=== PATIENT | female | born 1985 | race African-American/Black ===

== ENCOUNTER 2021-01-07 19:29 | Emergency (ER) | payer MEDICAID, SELFPAY ==
[2021-01-07 19:40] VITALS: BP 115/69; PULSE 84; RESP 16; TEMP 37; O2SAT 97; BMI 37.8
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
[2021-01-07] MEDS: Diphth,Pertus(ACell),Tet Adult 0.5 ML SYRINGE IM (20:30)
[2021-01-07] MEDS: Lidocaine HCl 2 % MPF 5 ML VIAL 10 ML INFILTRATI (20:30)
--- NOTE | 2021-01-07 20:55 | PC.NURSE ---
This RN assisting primary RN with medications ordered in MAY. This RN medicated pt with TDAP and scanned lido and left at bedside for provider use. Pt aaox4, resting on stretcher in NAD, breathing with ease on RA. Pt skin warm dry and normal in appearance for age and race, speaking in complete, clear sentences.
== END 2021-01-07 20:59 | disposition home or self-care (01) ==
PROVIDERS: Emergency Provider Emergency Medicine
DX: S71.111A Laceration without foreign body, right thigh, initial encounter (principal); M79.651 Pain in right thigh; W26.0XXA Contact with knife, initial encounter; Y93.9 Activity, unspecified; Y92.9 Unspecified place or not applicable; Y99.9 Unspecified external cause status
CPT/HCPCS: 12001; 90471; 90715; 99284

== ENCOUNTER 2021-01-10 17:12 | Emergency (ER) | payer MEDICAID, SELFPAY ==
[2021-01-10 17:39] VITALS: BP 136/74; PULSE 88; RESP 18; TEMP 36.1; O2SAT 97; BMI 41.5
--- NOTE | 2021-01-10 18:52 | ED.URI ---
HPI - URI/Sore Throat General Chief Complaint: Upper Respiratory Symptoms Stated Complaint: dry cough sore throat Time Seen by Provider: 01/10/21 18:43 Source: patient Mode of arrival: ambulatory Limitations: no limitations History of Present Illness HPI Narrative: Patient complaining of 1 week of sore throat, congestion, cough, not vaccinated against COVID no fever no chills no body ache noticed some loss sensation no other family member sick Related Data Previous Rx's Medication Instructions Recorded codeine 10 mg-guaifenesin 100 mg/5 10 ml PO Q4-6H PRN #237 ml 01/10/21 mL oral liquid levofloxacin 500 mg tablet 500 mg PO DAILY 5 Days #5 tab 01/10/21 Allergies Allergy/AdvReac Type Severity Reaction Status Date / Time No Known Allergies Allergy Unverified 11/23/19 17:26 [No Known Allergies*] Review of Systems Review of Systems: Yes all other systems are reviewed and are negative [facility] Social History Social History Alcohol intake: unknown Patient Tobacco Use Status: Tobacco use Unknown Advance Directives: No Advance Directives Information Provided: Yes Patient : No Physical Exam Vital Signs: Vital Signs: Last Vital Signs Temp 97 F 01/10/21 17:39 Pulse 88 01/10/21 17:39 Resp 18 01/10/21 17:39 BP 136/74 01/10/21 17:39 Pulse Ox 97 01/10/21 17:39 Body Mass Index 41.5 Appearance: Alert. Oriented X3. No acute distress. ENT: Pharynx normal. Oral Mucosa moist, tympanic membrane intact Neck: Normal inspection. Neck supple. CVS: Normal heart rate and rhythm. Pulses normal. Respiratory: No respiratory distress. Equal air entry bilateral, no wheezing/rales/rhonchi Abdomen: Soft and nontender. B Skin: Skin warm and dry. Normal skin color. Normal skin turgor. Extremities: No lower extremity edema. No calf tenderness Neuro: Oriented X 3. MDM - URI/Sore Throat Lab Data Attestation: I reviewed the patient's lab results. Labs: Lab Results 01/10/21 01/10/21 Range/Units 18:28 18:28 COVID-19 (DEE) Negative (Negative) COVID-19 Clin Com See Note S. pyogenes GrpA KAMARI Negative (Negative) Discharge Plan Discharge Clinical Impression: Pharyngitis Qualifiers: Pharyngitis/tonsillitis etiology: other specified organisms Qualified Code(s): J02.8 - Acute pharyngitis due to other specified organisms Patient Disposition: Home, Self-Care Instructions: Pharyngitis (ED) Additional Instructions: Take antibiotic as advised Cough syrup was advised Get your COVID-19 vaccine please Prescriptions: New codeine-guaifenesin 10-100 mg/5 mL liquid 10 ml PO Q4-6H PRN (Reason: cough) Qty: 237 RF: 0 levofloxacin 500 mg tablet 500 mg PO DAILY 5 Days Qty: 5 RF: 0 Interventions: ED Discharge Assessment Last Done: 01/10/21 20:01 Discharge Date/Time: 01/10/21 20:02
[2021-01-10 19:07] LABS: IDNOW Serial# 9DD0AD1C; Strep A Nucleic Acid Negative (Negative)
[2021-01-10 19:13] LABS: COVID-19 Test Negative (Negative)
[2021-01-10] MEDS: Benzonatate 100 MG CAPSULE 200 MG PO (19:54)
[2021-01-10] MEDS: levoFLOXacin 500 MG TABLET PO (19:54)
== END 2021-01-10 20:02 | disposition home or self-care (01) ==
PROVIDERS: Emergency Provider Internal Medicine
DX: J02.8 Acute pharyngitis due to other specified organisms (principal); R20.8 Other disturbances of skin sensation; Z20.822 Contact with and (suspected) exposure to COVID-19
CPT/HCPCS: 36415; 87635; 87651; 99283

== ENCOUNTER → 2022-08-14 14:16 | Outpatient (BNVA) | payer MEDICAID, SELFPAY | PROVIDERS: Visit Provider Physician Assistant ==

== ENCOUNTER 2022-10-16 09:48 | Outpatient (AMB) | payer OTHER, SELFPAY ==
--- NOTE | 2022-10-16 09:50 | MHC.OFFVISWM ---
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 She heard about our program from her . Her goal is to lose weight and achieve a healthy lifestyle. She reports first being concerned about her weight 3-4 years ago, highest weight to date was 260 pounds. Current weight is 240.8 pounds with a BMI of 44.1. She has tried multiple methods of weight loss including fad diets without permanent results. She lives with her and step daughter. She does not work. She wakes at:?9 am, and goes to bed at?midnight. Dinner is at 5 pm. Breakfast: eggs, sausage, tater tots AM snack: skip Lunch: skip PM snack: skip Dinner: rice, chicken, salad, plantains After dinner: soup, mac and cheese Other snacks: chips Liquids: 32-48 oz water, 36 oz sprite or coke daily, 8 oz fruit punch or OJ daily Alcohol/marijuana/tobacco intake: 2-3 wine bottles daily, no cannabis, no tobacco Exercise: none, plans to join [employer] GERD score: 0 JUAN MANUEL score: 1 ESS score: 5 QOL score: 101 [facility] Surgical History (Updated 10/16/22 @ 09:58 by Kristina Ivan CMA) No history of previous surgery Social History Alcohol intake: unknown Patient Tobacco Use Status: Tobacco use Unknown Review of Systems Const All systems reviewed & are unremarkable except as noted in HPI and below Physical Exam Const General: cooperative, healthy appearing and no acute distress Orientation/consciousness: patient oriented x3 HEENT Head: Yes normal to inspection Ears: hearing grossly normal bilaterally General nose exam: Normal external nose present Face and sinus: Yes normal facial exam Eyes General: appearance normal, both eyes and all related structures Resp Effort & Inspection: normal respiratory effort Auscultation: clear to auscultation bilaterally Cardio Rate: regular rate Rhythm: regular rhythm Heart sounds: S1 normal heart sound present and S2 normal heart sound present GI Inspection: Yes normal to inspection, No distended and Yes obesity Palpation (GI): Soft to palpation, nontender and no guarding Auscultation: normal bowel sounds Skin General skin exam: no rashes or lesions noted Neuro General: patient oriented x3 Extrem General: No edema Psych Appearance: grossly normal Mental Status: mental status grossly normal Speech and movement: Normal speech and movement present Affect: normal affect Attitude: cooperative Assessment & Plan Assessment & Plan (1) Morbid obesity: Code(s): E66.01 - Morbid (severe) obesity due to excess calories Plan: This is a?36 yo female who will start our SWL program to prepare for bariatric surgery.? Blood work, h pylori , CXR, ECG, Abd US and UGI have been ordered. She is being scheduled for RD and BH initial consultations. She will start SWL classes and watch the first three videos before her next appointment. ? Adequate sleep of 7-8 hours per night discussed, awakening at 9 am and going to bed at midnight ? Purchase body composition analyzer scale (Mirza lebron or Roberto Carlos recommended) and check weight weekly. The best time to do this is first thing in the morning after going to the bathroom. 1. Nutritional counseling: Be sure to careful read the number of scoops per shake Start with 3 Premier Protein shakes ([employer], [employer], [employer]), (1 scoop in 8 oz low fat unsweetened almond milk or water each) First shake at 10am-noon, Second shake at 2pm-4pm Dinner at 5pm (9 forks of protein and 9 forks of salad/vegetables). Meal to include lean meat (beef, fish, pork, turkey, chicken), cooked vegetables or a salad with olive oil and/or fruits (berries, pears, apples, kiwi). Avoid salt, breads, potatoes, rice, pasta, desserts. 1 protein bar (Fulfil bars at [employer], [employer], or [employer]) at 7pm-9pm. Another shake with 1 scoop in 8 oz unsweetened almond milk at 10pm-Midnight. Try to drink 64 oz of water daily and avoid soda and juices. Decrease your wine intake over the next 3-4 weeks and then stop.? You stated you drink 2-3 bottles daily.? Decrease to 2 bottles for 5 days then 1 bottle for 5 days, then 1/2 a bottle for 5 days then 2 glasses daily for 2 days then 1 glass daily for 2 days then 1 glass every other day for 3 days then stop completely.?? ?2. Each shake would be drunk slowly, like coffee in a period of 2 hours. ?3. Cut each bar in 4 pieces and eat each piece in 30 min ?to make each bar last 2 hours. ?4. I emphasized the importance of measuring accurately the food portion and measure it carefully when serving the food on the plate ?5. The meal portions include 9 full-size forks of meat and 9 full-size forks of salad. You always eat the meat portion but you can replace up to half of the forks of salad/vegetables with rice, potatoes or pasta, or a fruit ?if you like. The less you do it the better weight loss will be. ?6. One full-size fork is what can be scooped on the fork without falling aside and not what can be bit with the fork. Use regular forks like those you find in a typical restaurant. ?7.? Please send me weight measurements as soon as possible and then once a week. Always include your diet and exercise plan. Alternatively come weekly at the office for weight checks and send me the measurements. ?8. Exercise counseling: Begin by watching a stretching for beginners video. Start slowly and begin to stretch your muscles. You should do this before and after each exercise session to prevent injury. Please join [facility] gym near your home. Ask the social service manager or one of the trainers how to use the machines if you are unfamiliar with them. Start elliptical with a resistance of 2. Increase resistance by 1 every 3 min to your most comfortable resistance with a max resistance of 8. Reduce the resistance by 1 every 3 minutes back down to 2 and repeat cycles for 300 calories. Alternatively, start treadmill with a speed of 3.0 and incline of 0, increasing incline by 1 every 3 minutes to the highest comfortable level (max 6 for now) then decrease in the same fashion. Repeat process to a goal of 300 calories. Goal of 2000 calories burned or more weekly. You may also consider use of the stationary bike. The easiest would be to chose the fat-burn or interval training program on the machine and do this until you reach the 300 calorie goal. Alternatively, you can manually adjust the resistance in a similar fashion as mentioned above, (resistance of 2-8 with a goal speed of 12 mph). Tracking calories is essential. 9. Alternatively start walking outside daily, tracking calories with a goal of 300 calories per day, daily. You can download the wilma [employer] which can track your time, distance and calories while walking outside. You press start in the wilma when you start and then stop when you are finished. 10.? It is important to avoid for at least 18 months postoperatively and it has been discussed at the information session 11. Please get labs, EKG and chest X-Ray within 1 week. 12. Discussed and answered all questions regarding?obtained consent to participate in the [facility]?Registry. 13. Please follow the diet plan exactly, without any change. If you do not like something about the plan or you feel hungry, you need to communicate with me so I can help you revise the plan. You should not change the plan yourself. Text me at [phone] 14. Goal is to lose at least 12 pounds in the first month 15. Goal is to lose 10% of your weight before surgery, which is about 24 lbs. Ultimate weight goal: 216 lbs before surgery Patient is morbidly obese and is not considered stable at this time.?I spent a total of 70 minutes reviewing/updating records, examining the patient and counseling the patient on weight management as detailed above. Orders: Orders Vitamin B12 and Folate Today E66.01 - Morbid (severe) obesity due to excess calories Comprehensive Met. Panel Today E66.01 - Morbid (severe) obesity due to excess calories C Reactive Protein Today E66.01 - Morbid (severe) obesity due to excess calories Ferritin Today E66.01 - Morbid (severe) obesity due to excess calories Hemoglobin A1c Today E66.01 - Morbid (severe) obesity due to excess calories Insulin Today E66.01 - Morbid (severe) obesity due to excess calories IRON PROFILE Today E66.01 - Morbid (severe) obesity due to excess calories Lipid Panel Today E66.01 - Morbid (severe) obesity due to excess calories PTHI Today E66.01 - Morbid (severe) obesity due to excess calories TSH reflex Free T4 Today E66.01 - Morbid (severe) obesity due to excess calories Vitamin A Today E66.01 - Morbid (severe) obesity due to excess calories Vitamin B1 Today E66.01 - Morbid (severe) obesity due to excess calories Vitamin D 25-OH Total Today E66.01 - Morbid (severe) obesity due to excess calories Zinc Today E66.01 - Morbid (severe) obesity due to excess calories ECG 12 lead EKG Today E66.01 - Morbid (severe) obesity due to excess calories FL upper GI w air Today E66.01 - Morbid (severe) obesity due to excess calories Complete Blood Count Auto Diff Today E66.01 - Morbid (severe) obesity due to excess calories H Pylori Breath Test Today E66.01 - Morbid (severe) obesity due to excess calories US abdomen comp w elastography Today E66.01 - Morbid (severe) obesity due to excess calories XR chest 2V Today E66.01 - Morbid (severe) obesity due to excess calories Referrals Behavioral Health Referral E66.01 - Morbid (severe) obesity due to excess calories Nutrition/Dietitian Referral E66.01 - Morbid (severe) obesity due to excess calories Coding Level of Care Code New Pt Level 5 (40784) Diagnoses Morbid obesity E66.01 Time Spent (min) 70
== END 2022-10-16 11:32 | disposition home or self-care (01) ==
PROVIDERS: PCP Internal Medicine; Visit Provider Physician Assistant Surgical
DX: E66.01 Morbid (severe) obesity due to excess calories (principal); Z68.41 Body mass index [BMI] 40.0-44.9, adult
CPT/HCPCS: 99205

== ENCOUNTER → 2022-10-16 09:48 | Outpatient (BNVA) | payer OTHER, SELFPAY | PROVIDERS: PCP Internal Medicine; Visit Provider Physician Assistant Surgical | DX: E66.01 Morbid (severe) obesity due to excess calories (principal); Z11.2 Encounter for screening for other bacterial diseases | CPT/HCPCS: 99202; 99211 ==

== ENCOUNTER 2022-10-16 16:10 | Outpatient (REF) | payer OTHER, SELFPAY ==
[2022-10-17 10:31] LABS: H Pylori Breath Test Positive (Negative)
== END 2022-10-16 16:11 | disposition home or self-care (01) ==
LOC: HO.LNP 16:10
PROVIDERS: Visit Provider Physician Assistant Surgical
DX: E66.01 Morbid (severe) obesity due to excess calories (principal); Z11.0 Encounter for screening for intestinal infectious diseases; Z71.3 Dietary counseling and surveillance; Z68.41 Body mass index [BMI] 40.0-44.9, adult
CPT/HCPCS: 83013

== ENCOUNTER 2024-05-04 15:09 | Outpatient (REF) | payer MEDICAID, SELFPAY ==
[2024-05-04 18:22] LABS: MANUAL DIFF FLAG NO
--- OUTSIDE RECORDS SUMMARY | 2024-05-04 18:27 | XMS_ITS | Encounter Summary ---
Author Organization [facility] Address [address] [place] [address] Care Team Providers Care Supervisor [employer] Name Role Phone Maggy Pratt MD Primary Care Provider [phone] Reason for Visit * Reason Comments Pre-visit Planning SDOH screening compl eted on 03/17/2024 Encounter Details Date Type Department Care Team ([facility] st Contact Info) Description 04/20/2024 Patient Outreach [facility] [address] [place] [address] Maggy Pratt MD [address] [place], [place] [id number] Pre-visit Planning (SDOH screening completed on 03/17/2024) Social History Tobacco Use Types Packs/Day Years Used Date Smoking Tobacco: Never Smokeless Tobacco: Never Depression Answer Date Recorded Patient Health Questionnaire-9 Score 0 08/13/2022 Housing Stability Answer Date Recorded What is your housing situation today? I have jory can 08/10/[address] you li ve. Do you have problems with any of the following? None of the above 08/10/2023 Food Insecurity Answer Date Recorded Within the past 12 months, y ou worried that your food would run out before you got money to buy more: Never True 01/11/2023 Within the past 12 months,th e food you bought just didn't last and you didn't have enough money to get more: Never True 08/2022 Transportation Answer Date Recorded In the past 12 months, has l ack of transportation kept you from medical appts, meetings, work or from getting things needed for daily living? No 01/11/2023 Utilities Answer Date Recorded In the past 12 months, has t he electric, gas, oil or water company threatened to shut off services in your home? No 01/11/2023 Depression Answer Date Recorded Patient Health Questionnaire-2 Score 0 08/13/2022 Internet Access Answer Date Recorded Internet Access Q1 Yes 03/17/2024 Internet Access Q2 Not on file 03/17/2024 Comments Unknown Sex and Gender Information Value Date Recorded Sex Assigned at Female 01/05/2022 10:15 AM EDT Legal Sex Female 10:15 AM EDT Gender Identity Female 01/05/2022 10:15 AM EDT Sexual Orientation Straight 01/05/2022 10 :15 AM EDT documented as of this encounter Progress Notes * Jewel Emanuel - 04/20/2024 10:56 AM EST CC Jewel Tracy placed successful outbound call to patient for pre-visit planning. Patient name and confirmed. Patient confirms appt date and time, and has transportation arrangements. Biggest concern for appointment at this time is no concerns. Patient advised to bring to appointment a photo id and insurance card. Appropriate screenings completed in anticipation of appointment. documented in this encounter Plan of Treatment Upcoming Encounters Date Type Department Care Team (Late st Contact Info) Description 07/06/2024 2:30 PM EDT Office Visit [facility] [address] [place] [address] Maggy Pratt MD [address] [place] [address] documented as of this encounter Visit Diagnoses Not on filedocumented in this encounter Additional Health Concerns Assessment Noted Time PHQ-9 Depression Total Score: 0 08/14/19 23 2:14 PM EDT documented as of this encounter Care Teams Supervisor [employer] Relationship Specialty Start Date End Date Maggy Pratt MD [address] [place] [address] PCP - General Internal Medicine 04/06/13 documented as of this encounter
--- OUTSIDE RECORDS SUMMARY | 2024-05-04 18:27 | XMS_ITS | Clinical Summary ---
Author Organization [employer] Address [address] [facility] [address] [place] [address] Care Team Providers Care Manager User Experience Name Role Phone Maggy Pratt MD Primary Care Provider [phone] Allergies No known active allergies Medications Tirzepatide-Weig ht Management (Zepbound) 2.5 MG/0.5ML solution auto-injectorInd ications:Class 3 severe obesity due to excess calories without serious comorbidity with body mass index (BMI) of 40.0 to 44.9 in adult (CMS/HCC) Inject 0.5 mL (2.5 mg) under the skin 1 (one) time per week. 2 mL 1 5 Active traZODone (Desyrel) 50 MG tabletIndication s:Primary insomnia Take 1 tablet (50 mg) by mouth at bedtime. 30 tablet 2 3 05/04/19 25 Discontinu ed(Therapy completed) Active Problems Problem Noted Date Diagnosed Date Other fatigue 05/04/2024 Class 3 severe obesity in adult 05/04/2024 Amenorrhea 05/04/2024 Depressive disorder 08/03/2012 Encounters Date Type Department Care Team Description 05/04/2024 2:00 PM EST Office Visit [facility] [address] [place] [address] Maggy Pratt MD Other fatigue (Primary Dx); Class 3 severe obesity due to excess calories without serious comorbidity with body mass index (BMI) of 40.0 to 44.9 in adult (CMS/HCC); Amenorrhea; Dietary counseling; Exercise counseling 05/04/2024 Travel 05/01/2024 Telephone [facility] [address] [place] [address] Maggy Pratt MD chart prep 04/28/2024 Telephone [facility] [address] [place] [phone] Maggy Pratt MD Nurse Triage 04/20/2024 Patient Outreach [facility] [address] [place] [address] Maggy Pratt MD Pre-visit Planning (SDOH screening completed on 03/17/2024) 03/23/2024 Telephone [facility] [address] [place] [address] Maggy Pratt MD No Show 03/21/2024 Telephone [facility] [address] [place] [phone] Maggy Pratt MD Chart Prep 03/17/2024 Patient Outreach [facility] [address] [place] [address] Maggy Pratt MD Pre-visit Planning (SDOH negative, Tobacco screening negative. ) from Last 3 Months Immunizations Name Administration Dates Next Due Tdap 01/07/2021 Family History Medical History Relation Name Comments Hypertension Mother Hypothyroidism Mother Diabetes type II Sister Relation Name Status Comments Mother Sister Social History Tobacco Use Types Packs/Day Years Used Date Smoking Tobacco: Never Smokeless Tobacco: Never Tobacco Cessation:Counseling Given: No Alcohol Answer Date Recorded Q1: How often do you have a drink containing alc ohol? 2 05/04/2024 Q2: How many drinks containi ng alcohol do you have on a typical day when you are drinking? 0 05/04/2024 Q3: How often do you have six or more drinks on one occasion? 2 05/04/2024 Depression Answer Date Recorded Patient Health Questionnaire-9 Score 0 05/04/2024 Patient Health Questionnaire-9 Score 0 05/04/2024 Last PHQ-9: Questionnaire Data Not on file 0 05/04/2024 Housing Stability Answer Date Recorded What is [...] Date Recorded Patient Health Questionnaire-2 Score 0 05/04/2024 Internet Access Answer Date Recorded Internet Access Q1 Yes 03/17/2024 Internet Access Q2 Not on file 03/17/2024 Comments Unknown Sex and Gender Information Value Date Recorded Sex Assigned at Female 01/05/2022 10:15 AM EDT Legal Sex Female 10:15 AM EDT Gender Identity Female 01/05/2022 10:15 AM EDT Sexual Orientation Straight 01/05/2022 10 :15 AM EDT Last Filed Vital Signs Vital Sign Reading Time Taken Comments Blood Pressure 121/80 05/04/2024 2:29 PM EST Pulse 84 05/04/2024 2:29 PM EST Temperature 36.6 ??C (97.9 ??F) 05/04/2024 2:29 PM ES T Respiratory Rate 20 05/04/2024 2:29 PM EST Oxygen Saturation 98% 05/04/2024 2:29 PM EST Inhaled Oxygen Concentration - - Weight 101 kg (222 lb) 05/04/2024 2:29 PM EST Height 157 cm (5' 1.81 ) 05/04/2024 2:29 PM EST Body Mass Index 40.85 05/04/2024 2:29 PM EST Plan of Treatment Upcoming Encounters Date Type Department Care Team (Late st Contact Info) Description 07/06/2024 2:30 PM EDT Office Visit [facility] [address] [place], [place] [phone] Maggy Pratt MD [address] [place], [place] [phone] Health Maintenance Due Date Last Done Comments HIV Screening 1987 Lipid Panel 1987 Family Planning (PISQ) 11/13/2002 Hepatitis C Screening 11/13/2005 Hepatitis B Vaccines (1 of 3 - 19+ 3-dose series) 11/13/2006 Pap Smear 11/13/2008 Cervical Cancer Screening 11/13/2017 HPV/Cotest 11/13/2017 COVID-19 Vaccine (1 - 2023-2 5 season) 2023 Influenza Vaccine (#1) 2023 Alcohol/Substance Use Screening 05/04/2025 05/04/2024 Depression Screening 05/04/2025 05/04/2024, 05/04/2024 SDOH Screening 05/04/2025 05/04/2024 Tobacco Screening 05/04/2025 05/04/2024 DTaP/Tdap/Td Vaccines (2 - T d or Tdap) 01/07/2031 01/07/2021 Zoster Vaccines (1 of 2) 11/13/2037 RSV Patients and Patients Aged 60 years or older (1 - 1-dose 75+ series) 11/13/2062 HIB Vaccines Aged Out No longer eligi ble based on patient's age to complete this topic HPV Vaccines Aged Out No longer eligi ble based on patient's age to complete this topic Hepatitis A Vaccines Aged Out No long er eligible based on patient's age to complete this topic IPV Vaccines Aged Out No longer eligi ble based on patient's age to complete this topic Meningococcal Vaccine Aged Out No gadiel darrius eligible based on patient's age to complete this topic Pneumococcal Vaccine: Pediatrics (0 to 5 Years) and At-Risk Patients (6 to 49) Years) Aged Out No longer eligible b ased on patient's age to complete this topic RSV under 20 months Aged Out No longe r eligible based on patient's age to complete this topic Rotavirus Vaccines Aged Out No longer eligible based on patient's age to complete this topic Insurance [facility] C[facility] * Guarantor: Radha Vásquez Account Type Relation to Patient Date of Phone Billing Address Personal/Family Self [address] [facility] RUDDY [id number] Care Teams Manager User Experience Relationship Specialty Start Date End Date Maggy Pratt MD [address] [place] [address] RUDDY Araujo PCP - General Internal Medicine 04/06/13
--- OUTSIDE RECORDS SUMMARY | 2024-05-04 18:28 | XMS_ITS | Clinical Summary ---
Author Organization [facility] it Address [address] [place] [address] Care Team Providers Care Bonding Supervisor Name Role Phone Ronni De Leon MD Primary Care Provider Immunizations Name Administration Dates Next Due Tdap Tetanus diptheria acell ular pertussis (Boostrix; Adacel) 7yo and older 01/07/2021 Social History Tobacco Use Types Packs/Day Years Used Date Smoking Tobacco: Never Assessed Comments Unknown Sex and Gender Information Value Date Recorded Sex Assigned at Not on file Legal Sex Female 11:38 PM EST Gender Identity Not on file Sexual Orientation Not on file Plan of Treatment Health Maintenance Due Date Last Done Comments Hepatitis B Vaccines (1 of 3 - 19+ 3-dose series) 11/13/2006 Cervical Cancer Screening: P ap Smear 11/13/2008 Depression Screening 02/08/2022 HIV Screening 02/08/2022 Hepatitis C Screening 02/08/2022 Social Influencers of Health Screening 02/08/2022 COVID-19 Vaccine ( - 2023-2 5 season) 2023 Influenza Vaccine (#1) 2023 DTaP,Tdap,and Td Vaccines (2 - Td or Tdap) 01/07/2031 01/07/2021 HIB Vaccines Aged Out No longer eligi [...] on patient's age to complete this topic MMR Vaccines Aged Out No longer eligi ble based on patient's age to complete this topic Meningococcal ACWY Vaccine Aged Out N o longer eligible based on patient's age to complete this topic Meningococcal B Vacine Aged Out No lo nger eligible based on patient's age to complete this topic Pneumococcal Vaccine: Pediat rics (0 to 5 Years) and At-Risk Patients (6 to 64 Years) Aged Out No longer eligi ble based on patient's age to complete this topic RSV Immunization Patients Un geraldine 20 months Aged Out No longer eligible b ased on patient's age to complete this topic Varicella Vaccines Aged Out No longer eligible based on patient's age to complete this topic Care Teams Bonding Supervisor Relationship Specialty Start Date End Date Ronni De Leon MD [address] [place] [address] PCP - General Internal Medicine 05/16/21
--- OUTSIDE RECORDS SUMMARY | 2024-05-04 18:28 | XMS_ITS | Encounter Summary ---
Author Organization [employer] Address [address] [facility] [address] [place] [address] Care Team Providers Care Pharmacy Informatics Manager Name Role Phone Maggy Pratt MD Primary Care Provider [phone] Encounter Details Date Type Department Care Team (Latest Contact Info) Description 05/04/2024 Travel Social History Tobacco Use Types Packs/Day Years Used Date Smoking Tobacco: Never Smokeless Tobacco: Never Alcohol Answer Date Recorded Q1: How often [...] AM EDT documented as of this encounter Plan of Treatment Upcoming Encounters Date Type Department Care Team ([facility] st Contact Info) Description 07/06/2024 2:30 PM EDT Office Visit [facility] [address] [place] [address] Maggy Pratt MD [address] [place] [address] documented as of this encounter Visit Diagnoses Not on filedocumented in this encounter Additional Health Concerns Assessment Noted Time PHQ-9 Depression Total Score: 0 05/04/19 25 2:34 PM EST documented as of this encounter Care Teams Pharmacy Informatics Manager Relationship Specialty Start Date End Date Maggy Pratt MD [address] [place] [address] PCP - General Internal Medicine 04/06/13 documented as of this encounter
--- OUTSIDE RECORDS SUMMARY | 2024-05-04 18:28 | XMS_ITS | Encounter Summary ---
Author Organization [employer] Address [address] [facility] [address] [place] [address] Care Team Providers Care Elevated Guard Name Role Phone Maggy Pratt MD Primary Care Provider [phone] Reason for Visit * Reason Onset Date Comments chart prep 05/01/2024 Encounter Details Date Type Department Care Team ([facility] st Contact Info) Description 05/01/2024 Telephone [facility] [address] [place] [address] Maggy Pratt MD [address] [place], [place] [phone] chart prep Social History Tobacco Use Types Packs/Day Years [...] AM EDT documented as of this encounter Miscellaneous Notes * Telephone Encounter - Silvana Kemp [place] - 05/01/2024 12:47 PM EST Chart Prep Labs: not done Images: done Vaccines due: yes Referrals: complete Screenings: pap smear Overdue care gaps: Sbirt, SDOH, PHQ-9 documented in this encounter Plan of Treatment Upcoming Encounters Date Type Department Care Team (Late st Contact Info) Description 07/06/2024 2:30 PM EDT Office Visit [facility] [address] [place] [address] Maggy Pratt MD [address] [place] [address] documented as of this encounter Visit Diagnoses Not on filedocumented in this encounter Additional Health Concerns Assessment Noted Time PHQ-9 Depression Total Score: 0 08/14/19 23 2:14 PM EDT documented as of this encounter Care Teams Elevated Guard Relationship Specialty Start Date End Date Maggy Pratt MD [address] [place] [address] PCP - General Internal Medicine 04/06/13 documented as of this encounter
--- OUTSIDE RECORDS SUMMARY | 2024-05-04 18:28 | XMS_ITS | Encounter Summary ---
Author Organization [employer] Address [address] [place] [address] [address], [place] [address] Care Team Providers Care Turn Down Man Name Role Phone Maggy Pratt MD Primary Care Provider [phone] Reason for Referral * Imaging (Routine) - Authorized Specialty Diagnoses / Procedures Referred By Ignacio young Referred To Contact Radiology Diagnoses Amenorrhea Procedures US Pelvis Transvaginal Maggy Pratt MD [address] [place] [address] Phone: tel: fax: [facility] [address] [place] [address], [address] [place] [address] Phone: tel: fax: Referral ID Status Reason Start Date Expiration Date V isits Requested Visits Authorized [id number] Authorized 05/04/2024 05/04/2025 1 1 Reason for Visit * Reason Comments Annual Exam Encounter Details Date Type Department Care Team (Late st Contact Info) Description 05/04/2024 2:00 PM EST Office Visit [facility] [address] [place], [place] [phone] Maggy Pratt MD [address] [place], [place] [phone] Other fatigue (Primary Dx); Class 3 severe obesity due to excess calories without serious comorbidity with body mass index (BMI) of 40.0 to 44.9 in adult (CMS/HCC); Amenorrhea; Dietary counseling; Exercise counseling Social History Tobacco Use Types Packs/Day Years [...] your housing situation today? I have jory pamella 08/10/[address] you li [...] AM EDT documented as of this encounter Last Filed Vital Signs Vital Sign Reading [...] Mass Index 40.85 05/04/2024 2:29 PM EST documented in this encounter Progress Notes * Maggy Pratt MD - 05/04/2024 2:00 PM EST Subjective Patient ID: Radha Vásquez is a 38 y.o. female who presents for Annual Exam. HPI Lost to follow-up for over a year period patient is mostly concerned today about an absence of her period For over a year. She is also very concerned about her weight. Admits dietary indiscretion. Does not exercise regularly. She is also concerned about the fatigue that she has had for several years. Denies feeling depressed. No suicidal ideation or homicidal ideation. Patient Active Problem List Diagnosis Depressive disorder Other fatigue Class 3 severe obesity in adult (CMS/HCC) Amenorrhea Current Outpatient Medications on File Prior to Visit Medication Sig Dispense Refill [DISCONTINUED] traZODone (Desyrel) 50 MG tablet Take 1 tablet (50 mg) by mouth at bedtime. 30 tablet 2 No current facility-administered medications on file prior to visit. No Known Allergies Review of Systems Constitutional: Negative for activity change, appetite change, chills and diaphoresis. HENT: Negative for dental problem, drooling, ear discharge, ear pain and hearing loss. Eyes: Negative for pain, discharge and itching. Respiratory: Negative for cough, choking and chest tightness. Cardiovascular: Negative for chest pain and leg swelling. Gastrointestinal: Negative for blood in stool and diarrhea. Genitourinary: Positive for menstrual problem. Negative for difficulty urinating, dyspareunia, dysuria, enuresis, flank pain, frequency and genital sores. Musculoskeletal: Negative for arthralgias, gait problem and joint swelling. Skin: Negative for pallor. Neurological: Negative for dizziness, seizures, speech difficulty, light- headedness and numbness. Psychiatric/Behavioral: Negative for behavioral problems, confusion and decreased concentration. Objective Physical Exam Constitutional: General: She is not in acute distress. Appearance: Normal appearance. She is not ill-appearing, toxic-appearing or diaphoretic. Cardiovascular: Rate and Rhythm: Normal rate. Heart sounds: No murmur heard. No friction rub. Pulmonary: Effort: Pulmonary effort is normal. Abdominal: General: Abdomen is flat. Skin: General: Skin is warm. Neurological: Mental Status: She is alert. Assessment/Plan Diagnoses and all orders for this visit: Other fatigue - CBC auto differential; Future - Comprehensive Metabolic Panel; Future - Lipid Panel, Standard; Future - Hepatitis C Viral RNA, Quantitative, Real-Time PCR; Future - HIV-1/2 Antigen and Antibodies, Fourth Generation, with Reflexes; Future - TSH W/Reflex to FT4; Future - Vitamin D, 25-Hydroxy, Total, Immunoassay; Future - Vitamin B12/Folate, Serum Panel; Future Class 3 severe obesity due to excess calories without serious comorbidity with body mass index (BMI) of 40.0 to 44.9 in adult ([facility]) Reviewed indications for pharmacotherapy with patient, which is treatment for patient w/ obesity ora patient with a BMI > 27 w/ CV risk factors who have failed lifestyle modifications alone. These are always prescribed in combination with ongoing lifestyle modification; and will be titrated up from the lowest dose. Will start patient on Zepbound, given know efficacy. Reviewed mechanism of action with patient. Discussed side effects with patient: nausea, vomiting, diarrhea & risk of pancreatitis. No contraindications identified: , hx of pancreatitis, hx of medullary thyroid cancer or MEN 2. Discussed calorie deficit, recommended reduction of 20-30% of maintenance calories; customer advisor specialist referral offered. Recommended to decrease soda and sugary beverage consumption. Recommended at least 20 g per meal of protein to assist with satiety. Recommended at least 150 min/week of moderate intensity exercise. - CBC auto differential; Future - Comprehensive Metabolic Panel; Future - Lipid Panel, Standard; Future - Hepatitis C Viral RNA, Quantitative, Real-Time PCR; Future - HIV-1/2 Antigen and Antibodies, Fourth Generation, with Reflexes; Future - TSH W/Reflex to FT4; Future - Vitamin D, 25-Hydroxy, Total, Immunoassay; Future - Vitamin B12/Folate, Serum Panel; Future - Tirzepatide-Weight Management (Zepbound) 2.5 MG/0.5ML solution auto-injector; Inject 0.5 mL (2.5 mg) under the skin 1 (one) time per week. Amenorrhea - US Pelvis Transvaginal; Future Dietary counseling Exercise counseling documented in this encounter Plan of Treatment Upcoming Encounters Date Type Department Care Team (Late st Contact Info) Description 07/06/2024 2:30 PM EDT Office Visit [facility] [address] [place] [address] Maggy Pratt MD [address] [place], [place] [phone] Scheduled Orders Name Type Priority Associated Diagnoses Orde r Schedule CBC auto differential Lab Routine Other fatigue Class 3 severe obesity due to excess calories without serious comorbidity with body mass index (BMI) of 40.0 to 44.9 in adult ([facility]) Expected: 05/04/2024 (Approximate), Expires: 05/04/2025 Comprehensive Metabolic Panel Lab Routine Other fatigue Class 3 severe obesity due to excess calories without serious comorbidity with body mass index (BMI) of 40.0 to 44.9 in adult ([facility]) Expected: 05/04/2024 (Approximate), Expires: 05/04/2025 Lipid Panel, Standard Lab Routine Other fatigue Class 3 severe obesity due to excess calories without serious comorbidity with body mass index (BMI) of 40.0 to 44.9 in adult ([facility]) Expected: 05/04/2024 (Approximate), Expires: 05/04/2025 Hepatitis C Viral RNA, Quantitative, Real-Time PCR Lab Routine Other fatigue Class 3 severe obesity due to excess calories without serious comorbidity with body mass index (BMI) of 40.0 to 44.9 in adult ([facility]) Expected: 05/04/2024 (Approximate), Expires: 05/04/2025 HIV-1/2 Antigen and Antibodies, Fourth Generation, with Reflexes Lab Routine Other fatigue Class 3 severe obesity due to excess calories without serious comorbidity with body mass index (BMI) of 40.0 to 44.9 in adult ([facility]) Expected: 05/04/2024 (Approximate), Expires: 05/04/2025 TSH W/Reflex to FT4 Lab Routine Other fatigue Class 3 severe obesity due to excess calories without serious comorbidity with body mass index (BMI) of 40.0 to 44.9 in adult ([facility]) Expected: 05/04/2024 (Approximate), Expires: 05/04/2025 Vitamin D, 25-Hydroxy, Total, Immunoassay Lab Routine Other fatigue Class 3 severe obesity due to excess calories without serious comorbidity with body mass index (BMI) of 40.0 to 44.9 in adult ([facility]) Expected: 05/04/2024 (Approximate), Expires: 05/04/2025 Vitamin B12/Folate, Serum Panel Lab Routine Other fatigue Class 3 severe obesity due to excess calories without serious comorbidity with body mass index (BMI) of 40.0 to 44.9 in adult ([facility]) Expected: 05/04/2024, Expires: 05/04/2025 US Pelvis Transvaginal Imaging Routine Amenorrhea Expected: 05/04/2024, Expires: 05/04/2025 documented as of this encounter Visit Diagnoses Diagnosis Other fatigue- Primary Class 3 severe obesity due to excess calories without serious comorbidity with body mass index (BMI) of 40.0 to 44.9 in adult ([facility]) Amenorrhea Absence of menstruation Dietary counseling Dietary surveillance and counseling Exercise counseling documented in this encounter Additional Health Concerns Assessment Noted Time PHQ-9 Depression Total Score: 0 05/04/19 25 2:34 PM EST documented as of this encounter Care Teams Turn Down Man Relationship Specialty Start Date End Date Maggy Pratt MD [address] [place] [id number] PCP - General Internal Medicine 04/06/13 documented as of this encounter
[2024-05-04 18:30] LABS: Basophils Percent Auto 0.3 % (0-2); Eosinophils Percent Auto 0.3 % (0-4); Hemoglobin 14.3 g/dl (12.0-16.0); Imm Gran Abs Auto 0.01 X10*3/uL (0.00-0.03); Imm Gran Pct Auto 0.3 % (0.0-0.4); Lymphocytes Absolute Auto 0.8 X10*3/uL (1.2-4.9); Lymphocytes Percent Auto 20.8 % (20-40); Mean Corpuscular HGB Conc 34.9 g/dl (31.0-35.0); Mean Corpuscular Hemoglobin 31.2 pg (27.0-33.0); Mean Corpuscular Volume 89.5 fL (80.0-98.0); Mean Platelet Volume 10.5 fL (9.4-12.3); Monocytes Absolute Auto 0.3 X10*3/uL (0.1-1.2); Monocytes Percent Auto 7.6 % (2-11); Neutrophils Absolute Auto 2.8 x10*3/uL (2.0-8.3); Neutrophils Percent Auto 70.7 % (45-73); Platelet Count 214 X10*3/uL (160-400); Red Blood Count 4.58 X10*6/uL (4.20-5.50); Red Cell Distribution Width 12.3 % (11.0-16.0); White Blood Count 3.9 X10*3/uL (4.8-10.8)
[2024-05-04 18:53] LABS: Alanine Aminotransferase 20 U/L (0-31); Albumin Level 3.7 g/dL (3.5-5.0); Alkaline Phosphatase 71 U/L (39-117); Anion Gap 11 (12-20); Aspartate Amino Transferase 23 U/L (5-31); Bilirubin Total 1.4 mg/dL (0.0-1.0); Blood Urea Nitrogen 7 mg/dL (9-16); Calcium 9.1 mg/dL (8.4-10.2); Carbon Dioxide 24 mmol/L (22-29); Chloride 109 mmol/L (96-108); Cholesterol 149 mg/dL (<200); Estimated Glomerular Filt Rate > 60; Glucose Random 85 mg/dL (60-115); HDL Cholesterol 57 mg/dL (>40); LDL Cholesterol Calculated 81 mg/dL (<100); Potassium 3.7 mmol/L (3.3-5.1); Sodium 140 mmol/L (135-145); Total Protein 7.6 g/dL (6.5-8.0); Triglycerides 55 mg/dL (<150)
[2024-05-04 18:59] LABS: TSH reflex Free T4 1.86 uIU/mL (0.32-4.0)
[2024-05-04 19:30] LABS: Folate 11.7 ng/mL (> or = 4.0); Vitamin B12 454 pg/mL (200-900)
[2024-05-05 07:56] LABS: HIV AB/AG Nonreactive (Nonreactive); HIV Num 1 0.05 S/CO (0.00-0.99)
[2024-05-06 14:18] LABS: HCV Log PCR <1.18 NOT DETECTED Log IU/mL (NOT DETECTED); HepC Viral Load <15 NOT DETECTED IU/mL (NOT DETECTED)
== END 2024-05-04 15:10 | disposition home or self-care (01) ==
LOC: HO.CHCLDS 15:09
PROVIDERS: Visit Provider Internal Medicine
DX: R53.83 Other fatigue (principal); E66.813 Obesity, class 3; E66.01 Morbid (severe) obesity due to excess calories; Z68.41 Body mass index [BMI] 40.0-44.9, adult
CPT/HCPCS: 36415; 80053; 80061; 82306; 82607; 82746; 84443; 85025; 87389; 87522

== ENCOUNTER 2024-12-15 16:58 | Emergency (ER) | payer MEDICAID, SELFPAY ==
--- NOTE | 2024-12-15 17:09 | ED.GENADULT ---
HPI - General Adult General Chief complaint: Allergic Reaction Stated complaint: STUNG BY A BEE Time Seen by Provider: 12/15/24 17:01 History of Present Illness ED Provider: Dr. Lama HPI narrative: 39 y/o F patient; without significant PMH; presents via EMS with report of a bee sting to left hand while driving her car. Patient was able to get to an Urgent Care where she received an IM epinephrine and benadryl at approx 1630. EMS then provided additional benadryl and IV solu-medrol. The patient states her initial symptoms were itchiness, throat closure, loss of voice, facial redness. Patient has never before been stung with a bee. At the time of arrival she feels well without complaints. Related Data Previous Rx's ?Medication ?Instructions ?Recorded amoxicillin 500 mg capsule 1,000 mg (2 x 500 mg) PO Q12H 14 10/19/22 days #56 caps clarithromycin 500 mg tablet 500 mg PO Q12H 14 days #28 tabs 10/19/22 omeprazole 20 mg capsule,delayed 20 mg PO BID 14 days #28 caps 10/19/22 release epinephrine 0.3 mg/0.3 mL 0.3 mg (0.3 mL) IM Q10M PRN 12/15/24 injection, auto-injector (EpiPen anaphylaxis #2 ea 2-Rashawn) Allergies Allergy/AdvReac Type Severity Reaction Status Date / Time bee pollen (bee stings) Allergy Dry Mucus Verified 12/15/24 17:30 Membranes Review of Systems Review of Systems: Yes all other systems are reviewed and are negative PMFSH Past Medical History Attestation statement: The following information was validated with the patient. Source: old records reviewed Surgical History No history of previous surgery Social History Social History Alcohol intake: unknown Patient Tobacco Use Status: Tobacco use Unknown Smoked in Last 30 Days: No Use of substances other than those prescribed or required for medical reasons: No Advance Directives: No Advance Directives Information Provided: No Physical Exam ED Vital Signs: Vital Signs - 24 hr 12/15/24 17:14 12/15/24 18:49 Temperature 98 F 98 F Pulse Rate 102 H 82 Respiratory Rate 29 H 20 Blood Pressure 119/69 99/78 Pulse Oximetry 97 96 Oxygen Delivery Method Room Air Room Air BMI result Body Mass Index 44.3 Patient is afebrile and hemodynamically stable. Const General: cooperative and no acute distress HENMT Head: Yes normal to inspection and Yes atraumatic Eyes General: appearance normal, both eyes and all related structures Pupils: Equal, round and reactive pupils present EOM: EOMs intact bilaterally Neck Neck: Yes normal visual inspection, Yes full ROM, Yes supple and No tender Chest Chest palpation & inspection: normal inspection of the chest and normal palpation of entire chest wall Resp Effort & Inspection: normal respiratory effort, able to speak in complete sentences, no cough and no respiratory distress Auscultation: clear to auscultation bilaterally Cardio Rate: regular rate Rhythm: regular rhythm Peripheral pulses: Peripheral pulses 2+ throughout GI Inspection: Yes normal to inspection, No Abdominal wall edema and No distended Palpation (GI): Soft to palpation, not firm, nontender, no guarding and not rigid Auscultation: normal bowel sounds Back/Spine/Pelvis Back: No back tenderness Neuro Cranial nerves: Yes Equal, round and reactive pupils present Extrem Other: LUE: + small puncture to dorsal aspect of left hand over proximal 1st digit. Course Course Course Narrative: Patient is afebrile and hemodynamically stable. No evidence of hives on exam, lung sounds clear in all bruno, maintaining airway well. Will plan on approx 3 - 4 hour observation period. Patient re-evaluated. Voice is back to baseline. No reoccurrence of hives. Patient feels well and is interested in discharge to home. Plan: Discharge to home with PCP follow up Return precautions given rx epi-pen sent to pharmacy Discharge Plan Discharge Clinical Impression: Anaphylaxis Patient Disposition: Home, Self-Care Instructions: General Allergic Reaction (ED) Additional Instructions: You were seen for an anaphylactic reaction to a bee sting. You received benadryl, a steroid, and an epi-pen. 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 If you need to use it you will return immediately to the emergency department. Please follow up with your primary doctor within the next 2 - 3 days for a re-evaluation and to discuss your recent emergency department visit. Prescriptions: New epinephrine [EpiPen 2-Rashawn] 0.3 mg/0.3 mL auto-injector 0.3 mg IM Q10M PRN (Reason: anaphylaxis) Qty: 2 0RF Rx Instructions: for 2 doses No Action amoxicillin 500 mg capsule 1,000 mg PO Q12H 14 Days Qty: 56 0RF clarithromycin 500 mg tablet 500 mg PO Q12H 14 Days Qty: 28 0RF omeprazole 20 mg capsule,delayed release(DR/EC) 20 mg PO BID 14 Days Qty: 28 0RF Print Language: Icelandic
[2024-12-15 17:14] VITALS: BP 119/69; BP 147/89; PULSE 102; PULSE 103; RESP 29; TEMP 36.6; O2SAT 97; O2SAT 99; BMI 44.3
--- NOTE | 2024-12-15 18:48 | PC.NURSE ---
Pt reports pain at site of sting. Voice nearly back to normal.
[2024-12-15 18:49] VITALS: BP 99/78; PULSE 82; RESP 20; TEMP 36.6; O2SAT 96
[2024-12-15 19:59] VITALS: BP 106/74; PULSE 87; RESP 20; TEMP 36.7; O2SAT 97
[2024-12-15 20:12] VITALS: BP 106/74; PULSE 96; RESP 20; TEMP 36.1; O2SAT 97
--- NOTE | 2024-12-15 20:13 | PC.NURSE ---
reviewed discharge instructions with pt. pt verbalized understanding, no sign of respiratory distress. notified primary nurse Paresh.
== END 2024-12-15 20:14 | disposition home or self-care (01) ==
PROVIDERS: Emergency Provider Emergency Medicine
DX: M79.642 Pain in left hand (principal); T63.441A Toxic effect of venom of bees, accidental (unintentional), initial encounter; Y93.9 Activity, unspecified; Y92.9 Unspecified place or not applicable; Y99.8 Other external cause status; Z79.899 Other long term (current) drug therapy
CPT/HCPCS: 99284

== ENCOUNTER 2025-02-09 08:15 | Outpatient (AMB) | payer MEDICAID, SELFPAY ==
--- NOTE | 2025-02-09 09:33 | A.OFFVIS_ITS ---
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 41.5: Details: Start time: 9.30am, End time: 10.23am ?I spent 48 minutes speaking with the patient on the phone plus an additional 5 minutes reviewing and updating records for a total of 53 minutes HPI Comments Details: Previous weight loss efforts: self diets and exercise Wakes up: 12pm, Sleeps: 3am Breakfast: skips Lunch: 3pm Dinner: 7.30pm (rice, banana, meat) Snacks: 1pm (chips, cookies), 9-10pm (cookie, chips, chocolate) Exercise: none Beverages: Coffee: (1 cup/d with creamer and sugar), Tea: none, Soda: Regular Coke (2 cups/day), Juice: none, ETOH: 2-3/wk (10-12 beers) PFSH Medical History (Updated 02/09/25 @ 09:35 by Gabriel Wyman MD) DJD (degenerative joint disease) GERD (gastroesophageal reflux disease) Surgical History No history of previous surgery Social History Alcohol intake: unknown Patient Tobacco Use Status: Tobacco use Unknown Telehealth Telehealth Telehealth Platform: Telephone Location of provider rendering services: practice address Location of patient: address on file Patient Identification confirmed using: Name, : Yes Telehealth method: voice only Patient verbally consented to treatment: Yes Patient verbally consented to billing insurance company: Yes Patient informed of any privacy concerns related to visit: Yes Minutes spent on Phone/Video with Pt.: 53 Assessment & Plan Assessment & Plan (1) Morbid obesity: Code(s): E66.01 - Morbid (severe) obesity due to excess calories Category: Medical Plan: 1.? Plan for lap sleeve gastrectomy. If diaphragmatic or ventral hernias are present at time of surgery, these will be repaired laparoscopically as well. I emphasized the importance of close follow-up, adherence to instructions and good communication. The surgery does not replace the need to change your lifestlyle which is the cause of the obesity problem. The surgery provides the motivation to try again to change your lifestyle, it reduces the appetite and make the transition to a better lifestyle easier and doubles the amount of weight you would lose compared to doing the lifestyle change without the surgery. You will need to be on a liquid diet with protein shakes for 2 weeks before surgery to maximize weight loss and boost your nutritional status to recover better from surgery and also for the first two weeks after surgery to let the stomach heal before we introduce other foods. After the first 2 weeks we will introduce protein bars and soft foods like scrambled eggs, cottage cheese and yogurt and after the 6th week will introduce meat, fish and cooked vegetables in small amounts. Over time you should be able to eat everything in small amounts. Side effects like nausea, vomiting, heartburn or abdominal pain are not common in the practice unless you are not following in the practice. This operation requires lifetime commitment to following in our practice and communication with me. You will much less weight and experience side effects if you don?t communicate or not following in the practice. Complications are rare and in our practice is about 1/10 of the national average. However, you can develop bleeding that may require transfusion (hasn?t happened for year in the practice), you may from complications (we did not have any deaths in the practice) and infections. Infections are usually a result of breakdown in commu nication or not understanding or following directions correctly. They are difficult to treat, they can happen during the first 6 weeks, they may require to be in the hospital for weeks or even months, not being able to eat by mouth and you may have drains and surgeries to try and correct the issue. Other risks and complications include possible conversion to an open procedure, leaks, small bowel obstruction, blood clots, cardiac, or pulmonary complications, as superintendent container terminal complications such as ulcers, insufficient weight loss and vitamin deficiencies. 1.? Nutritional counseling. Start with one premade PREMIER protein (buy at [employer] or [employer]) shake (mix 4oz of Premier mixed with 4oz low fat unsweetened almond milk each) at 1pm-3pm, one protein bar (Fit Crunch protein bar, buy at [employer], or [employer]) at 4pm-6pm, dinner at 7pm (8 forks of protein and 8 forks of salad/vegetables), another premade PREMIER protein shake (mix 4oz of Premier mixed with 4oz low fat unsweetened almond milk each) at 7pm-9pm, another [employer] Crunch protein bar at 10pm to midnight and one more premade PREMIER protein shake (mix 4oz of Premier mixed with 4oz low fat unsweetened almond milk each) at 1am-3am. So you do 3 protein shakes, 2 protein bars and one meal per day. Meal to include lean meat (beef, fish, pork, turkey, chicken), or mozambican yogurt, or egg whites, or beans with a salad with olive oil and fruits (berries, pears, apples, kiwi). Avoid salt, breads, potatoes, rice, pasta, desserts. 3. Each shake would be drunk slowly, like coffee in a period of 2 hours. 4. Cut each bar in 4 pieces and eat each piece in 30min ?to make each bar last 2 hours. 5. I emphasized the importance of measuring accurately the food portion and measure it when serving the food in plate 6. The meal portions include 10 full-size forks of meat and 10 full-size forks of salad. You always eat the meat portion but you can replace up to 5 forks for salad/vegetables with rice, potatoes or pasta, or a fruit ?if you like. The less you do it the better weight loss will be. 7. One full-size fork is what it can be scooped on the fork without falling aside and not what can be bit with the fork. Use regular forks like those you find in a typical restaurant. 8.? Please buy the body composition scale we discussed and send me weight measurements as soon as possible and then once a week. Always include your diet and exercise plan. 9. The best choice would be to purchase a stationary bike at home that can track calories. If you get one, please start stationary bike at a resistance level of 4.0 Increase level by 1.0 every 3 min to a max level of 10.0. Stay at this level for 3 min and then return to level 4.0 and repeat same steps until 300 calories are burned. Goal is to burn 2000 calories per week on exercise 10.?It is important of avoiding and for at least 18 months postoperatively and has been discussed at the infosession. 11. Goal is to lose at least 1.5-2lbs per week 12. Goal to lose 10% of your weight before surgery, which is about 26lbs. Ultimate weight goal: 200lbs before surgery 13. Please follow the diet plan exactly without any change. If you don't like something about the plan or you feel hungry you need to communicate with me so I can help you revise the plan. You should not change the plan yourself 14. To be scheduled for EGD to assess the stomach's anatomy. The possibility of biopsies was discussed. Patient needs to avoid use of NSAIDs and aspirin for 1 week prior to EGD. You must be on liquids only the day before your endoscopy. Risks of perforation and bleeding was discussed with the patient. This will be an outpatient procedure with IV sedation. Orders: Orders Insulin Today E66.01 - Morbid (severe) obesity due to excess calories, K21.9 - Gastro-esophageal reflux disease without esophagitis H Pylori Breath Test Today E66.01 - Morbid (severe) obesity due to excess calories, K21.9 - Gastro-esophageal reflux disease without esophagitis Lipid Panel Today E66.01 - Morbid (severe) obesity due to excess calories, K21.9 - Gastro-esophageal reflux disease without esophagitis Comprehensive Met. Panel Today E66.01 - Morbid (severe) obesity due to excess calories, K21.9 - Gastro-esophageal reflux disease without esophagitis Vitamin B1 Today E66.01 - Morbid (severe) obesity due to excess calories, K21.9 - Gastro-esophageal reflux disease without esophagitis Vitamin A Today E66.01 - Morbid (severe) obesity due to excess calories, K21.9 - Gastro-esophageal reflux disease without esophagitis US abdomen comp w elastography Today E66.01 - Morbid (severe) obesity due to excess calories, K21.9 - Gastro-esophageal reflux disease without esophagitis XR chest 2V Today E66.01 - Morbid (severe) obesity due to excess calories, K21.9 - Gastro-esophageal reflux disease without esophagitis FL upper GI w air Today E66.01 - Morbid (severe) obesity due to excess calories, K21.9 - Gastro-esophageal reflux disease without esophagitis Hemoglobin A1c Today E66.01 - Morbid (severe) obesity due to excess calories, K21.9 - Gastro-esophageal reflux disease without esophagitis Complete Blood Count Auto Diff Today E66.01 - Morbid (severe) obesity due to excess calories, K21.9 - Gastro-esophageal reflux disease without esophagitis IRON PROFILE Today E66.01 - Morbid (severe) obesity due to excess calories, K21.9 - Gastro-esophageal reflux disease without esophagitis Vitamin B12 and Folate Today E66.01 - Morbid (severe) obesity due to excess calories, K21.9 - Gastro-esophageal reflux disease without esophagitis Zinc Today E66.01 - Morbid (severe) obesity due to excess calories, K21.9 - Gastro-esophageal reflux disease without esophagitis C Reactive Protein Today E66.01 - Morbid (severe) obesity due to excess calories, K21.9 - Gastro-esophageal reflux disease without esophagitis TSH reflex Free T4 Today E66.01 - Morbid (severe) obesity due to excess calories, K21.9 - Gastro-esophageal reflux disease without esophagitis Ferritin Today E66.01 - Morbid (severe) obesity due to excess calories, K21.9 - Gastro-esophageal reflux disease without esophagitis Vitamin D 25-OH Total Today E66.01 - Morbid (severe) obesity due to excess calories, K21.9 - Gastro-esophageal reflux disease without esophagitis ECG 12 lead EKG Today E66.01 - Morbid (severe) obesity due to excess calories, K21.9 - Gastro-esophageal reflux disease without esophagitis Referrals Behavioral Health Referral E66.01 - Morbid (severe) obesity due to excess calories, K21.9 - Gastro-esophageal reflux disease without esophagitis Nutrition/Dietitian Referral E66.01 - Morbid (severe) obesity due to excess calories, K21.9 - Gastro-esophageal reflux disease without esophagitis Medications: Refilled amoxicillin 1,000 mg (2 x 500 mg) PO Q12H 56 caps 0RF 14 days
[2025-02-09 09:43] VITALS: BMI 41.4
== END 2025-02-09 10:24 | disposition home or self-care (01) ==
LOC: HO.HBS 08:15
PROVIDERS: Visit Provider Surgery
DX: E66.01 Morbid (severe) obesity due to excess calories (principal); Z68.41 Body mass index [BMI] 40.0-44.9, adult
CPT/HCPCS: 99214

== ENCOUNTER 2025-03-05 18:08 | Emergency (ER) | payer MEDICAID, SELFPAY ==
--- NOTE | ~2025-03-05 | XR_ITS ---
CLINICAL HISTORY: cough 2 view chest x-ray Comparison: None provided Findings: No consolidation or effusion. Normal size heart. No acute fracture. IMPRESSION: 1. No acute findings. This document has been electronically signed by: Glenny Combs MD on 03/05/2025 18:54:33
[2025-03-05 18:26] VITALS: BP 149/82; PULSE 105; RESP 18; TEMP 37.4; O2SAT 97; BMI 43.5
--- NOTE | 2025-03-05 18:28 | ED_ITS ---
HPI - General Adult General Chief complaint: Upper Respiratory Symptoms Stated complaint: flu symptoms Time Seen by Provider: 03/05/25 20:39 Source: patient, RN notes reviewed and old records reviewed Mode of arrival: ambulatory Limitations: no limitations History of Present Illness ED Provider: Yoan HPI narrative: 39-year-old female presents for evaluation of flu-like symptoms pain She reports subjective fevers, body aches, headache, cough in his sore throat for the last 2 days. Denies any known sick contacts. Denies any shortness of breath or chest pain Related Data Previous Rx's ?Medication ?Instructions ?Recorded epinephrine 0.3 mg/0.3 mL 0.3 mg (0.3 mL) IM Q10M PRN 12/15/24 injection, auto-injector (EpiPen anaphylaxis #2 ea 2-Rashawn) amoxicillin 500 mg capsule 1,000 mg (2 x 500 mg) PO Q1 2H 14 02/09/25 days #56 caps ondansetron 4 mg disintegrating 4 mg PO Q8H PRN nausea and 03/05/25 tablet vomiting #20 tabs Allergies Allergy/AdvReac Type Severity Reaction Status Date / Time bee pollen (bee stings) Allergy Dry Mucus Verified 03/05/25 18:28 Membranes Review of Systems Constitutional: Constitutional: Reports body ache(s), Reports chills, Reports fever(s), Denies frequent falls and Reports headache(s) Eyes: Eyes: Denies blurry vision ENT: Reports headache(s) and Reports sore throat Cardiovascular: Cardiovascular: Denies chest pain, Denies dyspnea and Denies dyspnea on exertion Respiratory: Respiratory: Reports cough, Denies dyspnea and Denies dyspnea on exertion Gastrointestinal: Gastrointestinal: Denies abdominal pain, Denies nausea and Denies vomiting Musculoskeletal: Musculoskeletal: Denies back pain Integumentary/Breasts: Skin/Breast: Denies rash Neurologic: Denies frequent falls and Reports headache(s) Psychiatric: Psychiatric: Denies anxiety PMFSH Past Medical History Medical History (Updated 03/05/25 @ 20:56 by Greg Milton) DJD (degenerative joint disease) GERD (gastroesophageal reflux disease) Surgical History No history of previous surgery Social History Social History Alcohol intake: unknown Patient Tobacco Use Status: Tobacco use Unknown Advance Directives: No Advance Directives Information Provided: Yes Do you have a plan to hurt others: No Plan Physical Exam ED Vital Signs: Vital Signs - 24 hr 03/05/25 18:26 03/05/25 21:04 Temperature 99.3 F 99.3 F Pulse Rate 105 H 105 H Respiratory Rate 18 18 Blood Pressure 149/82 H 149/82 H Pulse Oximetry 97 97 Oxygen Delivery Method Room Air Room Air BMI result Body Mass Index 43.5 Const General: healthy appearing, comfortable, no acute distress, alert and awake Nutritional Appearance: well nourished Orientation/consciousness: patient oriented x3 HENMT Head: Yes normocephalic and Yes atraumatic Throat: Yes posterior oropharynx normal Eyes Eyelids: Yes eyelids normal Conjunctivae: conjunctivae normal Sclerae: sclerae normal Corneas: corneas normal Pupils: Equal, round and reactive pupils present EOM: EOMs intact bilaterally Neck Neck: Yes full ROM Resp Effort & Inspection: normal respiratory effort, able to speak in complete sentences, no audible wheezes and not labored Auscultation: clear to auscultation bilaterally Skin General skin exam: elasticity normal Neuro General: patient oriented x3 Cranial nerves: Yes Equal, round and reactive pupils present and Yes Bilaterally intact EOM present Cognition (Neuro): normal cognition Extrem Other: Moving all extremities well without any obvious deformities Course Course Course Narrative: Rapid medical examination performed in triage by Uzma Pavon PA-C: Patient is a 39 year old female presenting to the emergency department with a cough and feeling generally unwell. Detailed physical exam and review of systems are deferred to the pantry steward/stewardess. Imaging and swabs ordered. Patient placed back in the waiting room pending room availability and results. Medical Decision Making Medical Decision Making MDM Narrative: 39-year-old female presents for evaluation of flu-like symptoms, she did not fact as positive for influenza A. Vital signs are stable. She had a chest x- ray ordered from triage that does not show any evidence of pneumonia. Plan for discharge with symptomatic care. Despite her vomiting, her abdomen is soft, nontender nondistended. I do not see any indication for advanced imaging of the abdomen pelvis as I suspect this is due to the viral illness. Differential Diagnosis Differential Diagnoses: The differential diagnosis associated with the presentat ion includes Influenza COVID-19 RSV Gastroenteritis Lab Data [facility] Lab Attestation statement: I reviewed the patient's lab results. Positive for influenza Labs: Lab Results 03/05/25 Range/Units 19:11 Influenza Type A (PCR) POSITIVE A (Negative) Influenza Type B (PCR) NEGATIVE (Negative) RSV RNA Qual (PCR) NEGATIVE (Negative) SARS-CoV-2 RNA (RT-PCR) NEGATIVE (Negative) Discharge Plan Discharge Clinical Impression: Influenza Patient Disposition: Home, Self-Care Instructions: Influenza (ED) Additional Instructions: You tested positive for influenza A. Use ibuprofen/Tylenol for fevers, body aches. Use Zofran as needed for nausea and vomiting pain Drink lots of fluids, small sips at a time. Follow up with your primary doctor, return for new or worsening symptoms Prescriptions: New ondansetron 4 mg tablet,disintegrating 4 mg PO Q8H PRN (Reason: nausea and vomiting) Qty: 20 0RF No Action epinephrine [EpiPen 2-Rashawn] 0.3 mg/0.3 mL auto-injector 0.3 mg IM Q10M PRN (Reason: anaphylaxis) Qty: 2 0RF Rx Instructions: for 2 doses amoxicillin 500 mg capsule 1,000 mg PO Q12H 14 Days Qty: 56 0RF Stand Alone Forms: Work/School Release Interventions: ED Discharge Assessment Last Done: 03/05/25 21:04 Discharge Date/Time: 03/05/25 21:05 Print Language: Lebanese
[2025-03-05 20:07] LABS: Resp Syncy Virus RNA Qual PCR NEGATIVE (Negative); SARS COV2 PCR INHOUSE NEGATIVE (Negative)
--- OUTSIDE RECORDS SUMMARY | 2025-03-05 20:52 | XMS_ITS | Clinical Summary ---
Author Organization [employer] Address [address] [place] [address] [address] [place] [address] Care Team Providers Care [facility] Consultant Name Role Phone Maggy Pratt MD Primary Care Provider [phone] Allergies No known active allergies Medications Tirzepatide-Weig ht Management (Zepbound) 2.5 MG/0.5ML solution auto-injectorInd ications:Class 3 severe obesity due to excess calories without serious comorbidity with body mass index (BMI) of 40.0 to 44.9 in adult (HCC) Inject 0.5 mL (2.5 mg) under the skin 1 (one) time per week. 2 mL 1 05/04/2024 Active cholecalciferol (Vitamin D-3) 50 MCG (2000 UT) capsuleIndicatio ns:Vitamin D deficiency Take 1 capsule (50 mcg) by mouth Once per day. 30 capsule 11 05/05/2024 Active Active Problems Problem Noted Date Diagnosed Date Vitamin D deficiency 10/30/2024 Other fatigue 05/04/2024 Class 3 severe obesity in adult 05/04/2024 Amenorrhea 05/04/2024 Depressive disorder 08/03/2012 Immunizations Immunization Administration Dates Next Due Tdap 01/07/2021 Family [...] 84 05/04/2024 2:29 PM EST Temperature 36.6 C (97.9 F) 05/04/2024 2:29 PM EST Respiratory Rate 20 05/04/2024 2:29 PM EST Oxygen Saturation 98% 05/04/2024 2:29 PM EST Inhaled Oxygen Concentration - - Weight 101 kg (222 lb) 05/04/2024 2:29 PM EST Height 157 cm (5' 1.81 ) 05/04/2024 2:29 PM EST Body Mass Index 40.85 05/04/2024 2:29 PM EST Plan of Treatment Health Maintenance Due Date Last Done Comments Disability Screening 1987 Family Planning (PISQ) 11/13/2002 HPV Vaccines (1 - 3-dose series) 11/13/2002 Hepatitis B Vaccines (1 of 3 - 19+ 3-dose series) 11/13/2006 Pap Smear 11/13/2008 Cervical Cancer Screening 11/13/2017 HPV/Cotest 11/13/2017 COVID-19 Vaccine (1 - 2024-2 6 season) 2024 Influenza Vaccine (#1) 2024 Alcohol/Substance Use Screening 05/04/2025 05/04/2024 Depression Screening 05/04/2025 05/04/2024, 05/04/2024 SDOH Screening 05/04/2025 05/04/2024 Tobacco Screening 05/04/2025 05/04/2024 Lipid Panel 05/04/2029 05/04/2024 DTaP/Tdap/Td Vaccines (2 - T d or Tdap) 01/07/2031 01/07/2021 Zoster Vaccines (1 of 2) 11/13/2037 RSV Patients and Patients Aged 60 years or older (1 - 1-dose 75+ series) 11/13/2062 HIV Screening Completed 05/04/2024 Hepatitis C Screening Completed 05/04/2024 HIB Vaccines Aged Out No longer eligi ble based on patient's age to complete this topic Hepatitis A Vaccines Aged Out No long er eligible based on patient's age to complete this topic IPV Vaccines Aged Out No longer eligi ble based on patient's age to complete this topic Meningococcal B Vaccine Aged Out No l onger eligible based on patient's age to complete this topic Meningococcal Vaccine Aged Out No gadiel darrius eligible based on patient's age to complete this topic Pneumococcal Vaccine: Pediatrics (0 to 5 Years) and At-Risk Patients (6 to 49) Years Aged Out No longer eligible b ased on patient's age to complete this topic RSV under 20 months Aged Out No longe r eligible based on patient's age to complete this topic Rotavirus Vaccines Aged Out No longer eligible based on patient's age to complete this topic Procedures Procedure Name Priority Date/Time Associated Diagnosis Comments HEPATITIS C VIRAL RNA, QUANTITATIVE, REAL-TIME PCR Routine 05/04/2024 3:11 PM EST Other fatigue Class 3 severe obesity due to excess calories without serious comorbidity with body mass index (BMI) of 40.0 to 44.9 in adult (CMS/HCC) HIV 1/2 ANTIGEN/ANTIBODY, FOURTH GENERATION W/RFL Routine 05/04/2024 3:11 PM EST Other fatigue Class 3 severe obesity due to excess calories without serious comorbidity with body mass index (BMI) of 40.0 to 44.9 in adult (CMS/HCC) LIPID PANEL, STANDARD Routine 05/04/2024 3:11 PM EST Other fatigue Class 3 severe obesity due to excess calories without serious comorbidity with body mass index (BMI) of 40.0 to 44.9 in adult (CMS/HCC) from Last 3 Months or Most Recently Relevant to Health Maintenance Results * Hepatitis C Viral RNA, Quantitative, Real-Time PCR (05/04/2024 3:11 PM EST) Hepatitis C Viral Load <15 NOT DETECTED NOT DETECTED IU/mL [facility] HCV Log PCR <1.18 NOT DETECTED NOT DETECTED Log IU/mL [facility] Comment:For additional infor dmitry, please refer tohttp://education.[employer]/faq/YKC55k6(This link is being provided for informational/educational purposes only.)THIS TEST WAS PERFORMED AT:[facility] [place] [phone] HARRELL MD Blood Venous blood specimen / Unknown 05/04/2024 3:11 PM EST 05/04/2024 6:11 PM EST us Maggy Pratt MD LAB BLOOD ORDERABLES Final Result [facility] [address] [place] [phone] * HIV-1/2 Antigen and Antibodies, Fourth Generation, with Reflexes (05/04/2024 3:11 PM EST) HIV AB/AG Nonreactive Nonreactive [facility] Comment:HIV-1 p24 Ag and/or HIV-1/HIV-2 Ab not detected.A test result that is nonreactive does not exclude thepossibility of exposure to or infection with HIV-1 and/orHIV-2. Nonreactive results in this assay for individualswith prior exposure to HIV-1 and/or HIV-2 may be due toantigen and antibody levels that are below the limit ofdetection of this assay.The [employer] ([employer]el[employer]el) HIV Ag/Ab Combo assay result andsupplemental assay results should be interpreted inconjunction with the patient's clinical presentation,history and other laboratory results. If the results areinconsistent with clinical evidence, additional testing issuggested to confirm the result. Blood Venous blood specimen / Unknown 05/04/2024 3:11 PM EST 05/04/2024 6:11 PM EST us Maggy Pratt MD LAB BLOOD ORDERABLES Final Result [facility] [address] [place] [address] [phone] * Lipid Panel, Standard (05/04/2024 3:11 PM EST) Triglycerides 55 <150 mg/dL [facility] Comment:Desirable Triglyceri de: less than 150 mg/dLBorderline High Triglyceride 150-199 mg/dLHigh Triglyceride: 200-499 mg/dLVery High Triglyceride: greater than or equal to 5OO mg/dL Cholesterol 149 <200 mg/dL [facility] Comment:Desirable Cholestero l: less than 200 mg/dLBorderline High Cholesterol: 200-239 mg/dLHigh Cholesterol: greater than 239 mg/dL LDL Cholesterol Calculated 81 <100 mg/dL [facility] Comment:Desirable LDL: less than 100 mg/dLNear Optimal/Above Optimal LDL: 110- 129 mg/dLBorderline High LDL: 130-159 mg/dLHigh LDL: 160-189 mg/dLVery High LDL: greater than or equal to 190 mg/dL HDL Cholesterol 57 >40 mg/dL [facility] Comment:Desirable HDL: great er than 40 mg/dL Note: This HDL assay may give artificially low results in patients with liver disease. Blood Venous blood specimen / Unknown 05/04/2024 3:11 PM EST 05/04/2024 6:11 PM EST Maggy Pratt MD LAB BLOOD ORDERABLES Final Result [facility] [address] [place] [phone] from Last 3 Months or Most Recently Relevant to Health Maintenance Insurance RUDDY [place]ujo [id number] [facility] [address] RUDDY Araujo [id number] RUDDY Araujo [id number] RUDDY Araujo [id number] Care Teams Healthcare Network Consultant Relationship Specialty Start Date End Date Maggy Pratt MD [address] [place], [place] [address]RUDDY [id number] PCP - General Internal Medicine 04/06/13
--- OUTSIDE RECORDS SUMMARY | 2025-03-05 20:52 | XMS_ITS | Clinical Summary ---
Author Organization [facility] it Address [address] [place] [address] Care Team Providers Care Television Host Name Role Phone Ronni De Leon MD Primary Care Provider [phone] Immunizations Immunization Administration Dates Next Due Tdap Tetanus diptheria [...] Cervical Cancer Screening: P ap Smear 11/13/2008 HPV Vaccines (1 - 3-dose SCD M series) 11/13/2014 HIV Screening 02/08/2022 Hepatitis C Screening 02/08/2022 Social Influencers of Health Screening 02/08/2022 Depression Screening 03/08/2024 COVID-19 Vaccine ( - 2024-2 6 season) 2024 Influenza Vaccine (#1) 2024 DTaP,Tdap,and Td Vaccines (2 - Td or Tdap) 01/07/2031 01/07/2021 RSV Immunization Adult Patie nts (1 - 1-dose 75+ series) 11/13/2062 HIB [...] 5 Years) and At-Risk Patients (6 to 49 Years) Aged Out No longer eligi ble based on patient's age to complete this topic RSV Immunization Patients Un geraldine 20 months Aged Out No longer eligible b ased on patient's age to complete this topic Varicella Vaccines Aged Out No longer eligible based on patient's age to complete this topic Care Teams Television Host Relationship Specialty Start Date End Date Ronni De Leon MD [address] [place] [address] PCP - General Internal Medicine 05/16/21
--- OUTSIDE RECORDS SUMMARY | 2025-03-05 20:52 | XMS_ITS | Encounter Summary ---
Author Organization [employer] Address [address] [facility] [address] [place] [address] Care Team Providers Care Nurse Licensed Practical Name Role Phone Maggy Pratt MD Primary Care Provider [phone] Encounter Details Date Type Department Care Team (Late st Contact Info) Description 05/05/2024 Orders Only [facility] MEDICINE [address] [place] [address] Maggy Pratt MD [address] [place], [place] [phone] Vitamin D deficiency (Primary Dx) Social History Tobacco Use Types Packs/Day Years [...] as of this encounter Plan of Treatment Not on file documented as of this encounter Visit Diagnoses Diagnosis Vitamin D deficiency- Primary documented in this encounter Additional Health Concerns Assessment Noted Time PHQ-9 Depression Total Score: 0 05/04/19 25 2:34 PM EST documented as of this encounter Care Teams Nurse Licensed Practical Relationship Specialty Start Date End Date Maggy Pratt MD [address] [place] [id number] PCP - General Internal Medicine 04/06/13 documented as of this encounter
[2025-03-05 21:04] VITALS: BP 149/82; PULSE 105; RESP 18; TEMP 37.4; O2SAT 97
== END 2025-03-05 21:05 | disposition home or self-care (01) ==
PROVIDERS: Physician Assistant Medical; Emergency Provider Emergency Medicine
DX: J10.1 Influenza due to other identified influenza virus with other respiratory manifestations (principal); R50.9 Fever, unspecified; R51.9 Headache, unspecified; R05.9 Cough, unspecified; M79.10 Myalgia, unspecified site; Z03.818 Encounter for observation for suspected exposure to other biological agents ruled out
CPT/HCPCS: 71046; 87637; 99282; 99283